=== PATIENT | female | born 1995 | race Caucasian/White ===

== ENCOUNTER 2017-03-18 00:22 | Emergency (ER) | payer SELFPAY ==
[2017-03-18] MEDS ORDERED: Ibuprofen 800 MG TAB ONE (04:59)
--- NOTE | 2017-03-18 08:54 | RAD ---
LEFT HIP 2 VIEWS: HISTORY: Injury. Fall on Sunday. COMPARISON: None. FINDINGS: Obturator ring is intact. Pubic symphysis appears to be intact. No acute fracture or malalignment. Mild soft tissue edema over the lateral thigh. IMPRESSION: Soft tissue edema lateral thigh. No acute fracture or malalignment. POS: [facility]
--- OUTSIDE RECORDS SUMMARY | 2017-03-21 11:51 | XMS | Summary of Care ---
:1995 Author Name Rizo Eliana Paul Address Unavailable Unavailable , Care Team Providers Name Role Phone NIGHAT ROMO Unavailable Unavailable Functional Status Functional Status Health Issues Name Dates Details Functional status health issues are not documented Status: Cognitive Status Health Issues Name Dates Details Cognitive status health issues are not documented Status: Problems Name Dates Details Tenderness of left patella(719.46, M25.562) Status:Active Pain of left patellofemoral joint(719.46, M25.562) Status:Active Medications Name Dates Details No Reported Medications Refills:0 Active Allergies and Adverse Reactions Name Dates Details No Known Drug Allergies Status:Active Past Medical History Name Dates Details History of Known health problems: none(V49.89, Z78.9) Status:Resolved Procedures Procedure Dates Details Procedures not documented Immunization Name Dates Details Immunizations not documented Family History Unknown Family Member Name Dates Details No pertinent family history Comments:Family History Status:Active Social History Name Dates Details - Smoking StatusNever smoker Vital Signs Date Test Result Details 08-Mar-2016 16:14 Height 67in Status: Weight 125lb Status: Body Mass Index Calculated 19.58kg/m2 Status: Body Surface Area Calculated 1.66m2 Status: Results Date Description Value Details 08-Mar-2016 15:45 [U] XRAY KNEE 4 OR MORE VWS LEFT [id number] XR KNEE 4 OR MORE VWS LEFT Images acquired, not reported on this accession number. Plan of Care Planned Observations Name Dates Details Planned Goals not documented Goal Interventions Provided Labs/Procedures/Imaging[U] XRAY KNEE 4 OR MORE VWS LEFT [id number]; Done: Mar 08 2016 3:45PM Instructions Instructions not documented Encounters Appointment; RADHA LYNCH Encounter Diagnosis:Problem not documented 09:00
== END 2017-03-18 05:04 | disposition home or self-care (01) ==
LOC: ERS 00:22
DX: S70.02XA Contusion of left hip, initial encounter (principal); V00.131A Fall from skateboard, initial encounter